=== PATIENT | female | born 1995 | race Two or more races ===

== ENCOUNTER 2024-05-16 17:37 | Emergency (ER) | payer MEDICAID, SELFPAY ==
--- NOTE | 2024-05-16 17:40 | EKG_ITS ---
[facility] Test Date: 2024-05-16 Pat Name: ANIYA SAINZ Department: Room: - Gender: Female Restaurant Lead: : 1995 Requested By: ED Temporary Provider Order Number: [id number] Reading MD: ED Temporary Provider Measurements Intervals [place] Rate: 71 P: 58 VA: 190 QRS: 73 QRSD: 90 T: 38 QT: 336 QTc: 365 Interpretive Statements SINUS RHYTHM WITH MARKED RHYTHM IRREGULARITY, POSSIBLE NON-CONDUCTED PAC, SA BLOCK, AV BLOCK, OR SINUS PAUSE ABNORMAL RHYTHM ECG Compared to ECG 09/02/2022 19:08:36 Sinus arrhythmia no longer present /[id number]/S0/[id number]
[2024-05-16 18:01] VITALS: BP 125/81; PULSE 78; RESP 18; TEMP 36.9; O2SAT 98; BMI 28.8
--- NOTE | 2024-05-16 18:01 | XR_ITS ---
Examination: PA lateral chest 2 views Technique: Upright PA lateral chest 2 views Exam date and time: May 16, 2024 1837 hrs. Indications: Onset left-sided chest pain today. Findings: No significant cardiac enlargement No pneumonia or pulmonary edema Intact osseous structures Impression: No active disease
--- NOTE | 2024-05-16 18:01 | PD.EDRME ---
Rapid Medical Screening Exam RME Arrival date/time: 05/16/24 17:37 28-year-old female presents the emergency department complains of chest pain Chief Complaint: Chest Pain
[2024-05-16 18:28] LABS: Basophils # (Auto) 0.1 Thou/mm3 (0.0-0.2); Basophils % (Auto) 1 % (0-2.5); Eosinophils # (Auto) 0.2 Thou/mm3 (0.0-0.5); Eosinophils % (Auto) 2 % (0-10); Hematocrit 34.6 % (36.0-46.0); Hemoglobin 11.5 g/dL (12.0-16.0); Immature Granulocytes % (Auto) 0 % (0-0); Immature Granulocytes Auto 0.01 Thou/mm3 (0.00-0.00); Lymphocytes # (Auto) 2.5 Thou/mm3 (1.0-4.8); Lymphocytes % (Auto) 29 % (10-50); Mean Corpuscular HGB Conc 33.2 g/dl (31.0-37.0); Mean Corpuscular Hemoglobin 26.3 pg (25.0-35.0); Mean Corpuscular Volume 79 fL (80-100); Monocytes # (Auto) 0.5 Thou/mm3 (0.0-0.8); Monocytes % (Auto) 6 % (0-12); Neutrophils # (Auto) 5.4 Thou/mm3 (1.8-7.7); Neutrophils % (Auto) 62 % (37-80); Nucleated Red Blood Cell % 0 /100 WBC (0); Platelet Count 260 Thou/mm3 (140-440); RDW Standard Deviation 50.8 fL (36.4-46.3); Red Blood Count 4.38 Miln/mm3 (4.00-5.20); White Blood Count 8.7 Thou/mm3 (3.6-11.0)
[2024-05-16 19:01] LABS: Alanine Aminotransferase 13 U/L (10-49); Albumin, Serum 4.5 gm/dL (3.5-5.0); Albumin/Globulin Ratio 1.5 (1.2-2.2); Alkaline Phosphatase 97 U/L (46-116); Anion Gap 7 (7-16); Aspartate Amino Transferase 17 U/L (0-34); BUN/Creatinine Ratio 20 Ratio (12-20); Bilirubin,Total 0.2 mg/dL (0.3-1.2); Blood Urea Nitrogen 14 mg/dL (9-23); Calcium 9.5 mg/dL (8.3-10.6); Calcium (Corrected) 9.5 mg/dL (8.5-10.1); Carbon Dioxide 23.7 mMol/L (20.0-31.0); Chloride 106 mMol/L (98-107); Creatinine (Component) 0.7 mg/dL (0.6-1.3); Estimated Creatinine Clearance 113.2 mL/min (>60); Glucose 117 mg/dL (74-106); Osmolality,Calculated 275 (275-295); Potassium 3.6 mMol/L (3.4-5.1); Sodium 137 mMol/L (136-145); Total Protein 7.5 gm/dL (5.7-8.2); Troponin I < 0.002 ng/mL (0.0-0.045); eGFR > 60 See Note
[2024-05-16 19:31] LABS: HCG,Qualitative Serum Negative
--- NOTE | 2024-05-16 21:00 | EDNOTE_ITS ---
ED Chest Pain RME/HPI General Chief Complaint: Chest Pain Stated Complaint: LEFT SIDED CHEST PAIN Time Seen by Provider: 05/16/24 19:33 Source: patient Arrival date/time: 05/16/24 17:37 This is a 28-year-old female with no significant past medical history that presents to the emergency department with complaints of left epigastric abdominal pain that radiates into her chest and left shoulder. Patient reports her pain started 2 days ago has not had any nausea no vomiting no diaphoresis. No reported fever. Patient did not attempt any interventions or take any OTC medications prior to ED visit. Patient denies any other associated symptoms or aggravating factors. No modifying factors, no radiation, no migration. Mode of arrival: ambulatory RME / HPI RME / HPI narrative: 05/16/24 17:37 28-year-old female presents the emergency department complains of chest pain Related Data Home Medications ?Medication ?Instructions ?Recorded ?Confirmed vit no.95-ferrous 1 tab PO QDAY 05/11/20 03/27/21 fumarate 28 mg-folic acid 800 mcg tablet () insulin glargine 100 unit/mL (3 20 unit subcut HS 03/19/21 03/27/21 mL) subcutaneous pen (Basaglar KwikPen U-100 Insulin) Previous Rx's ?Medication ?Instructions ?Recorded acetaminophen 500 mg capsule 1,000 mg (2 x 500 mg) PO QID PRN 07/16/21 fever or pain #30 caps albuterol sulfate 90 mcg/actuation 2 puff inhalation QID PRN 07/16/21 aerosol inhaler shortness of breath or wheezing #8.5 grams azithromycin 250 mg tablet See Rx Instructions PO .COMPLEX #6 07/16/21 tabs acetaminophen 650 mg 650 mg PO Q8H PRN fever or pain 09/29/21 tablet,extended release #30 tabs ibuprofen 600 mg tablet 600 mg PO Q8H PRN fever or pain 09/29/21 #30 tabs ibuprofen 600 mg tablet 600 mg PO TID PRN pain #30 tabs 09/04/22 famotidine 40 mg tablet 40 mg PO QDAY #20 tabs 08/31/23 Allergies Allergy/AdvReac Type Severity Reaction Status Date / Time No Known Allergies Allergy Verified 09/04/22 02:01 Review of Systems Review of Systems Systems Reviewed: All systems reviewed, normal except as documented Narrative Review of Systems: Gen: No fever, no chills, no weight loss EYES: No discharge, no visual changes, no pain HEENT: No ear pain, no congestion, no sore throat PULM: No shortness of breath, no cough, no congestion CV: +chest pain, no dyspnea on exertion, no palpitations GI: No nausea, no vomiting, no diarrhea, no pain, no constipation : No frequency, no urgency,? no dysuria Musc/skel: No joint pain, no back pain, +shoulder pain Skin: No rash? Psyc: No hallucinations, no depression Heme/Lymph: No easy bleeding or bruising tendencies Neuro: No weakness, no headache ED Exam Narrative Physical exam: General: Sittiing in Exam table in no acute distress, answering questions appropriately HENT: normocephalic, atraumatic, EOMI, PERRLA, moist mucous membranes Chest: chest wall is nontender Cardiac: regular rate and rhythm, normal S1 and S2, no murmurs, rubs, or gallops, capillary refill ?2 seconds Pulmonary: clear to auscultation bilaterally, no wheezing, crackles, or rhonchi Abdominal: active bowel sounds, soft, nontender, nondistended Neuro: A&OX3, CN II-XII intact, sensation grossly intact bilaterally in UE and LE. Skin: no rashes, no ecchymosis Ext: no lower extremity edema Course Quality Measures none Orders Category Date Time Status EKG (ED ONLY) *Do not use* NOW Care 05/16/24 17:40 Completed EKG (ED Only) Stat Exams 05/16/24 17:40 Draft XR chest 2V Stat Exams 05/16/24 18:01 Completed CBC Stat Lab 05/16/24 18:21 Completed Comprehensive Metabolic Panel Stat Lab 05/16/24 18:21 Completed HCG,Qualitative Serum Stat Lab 05/16/24 18:21 Completed Troponin I Stat Lab 05/16/24 18:21 Completed Ketorolac Inj [Toradol Inj] Med 05/16/24 21:19 Discontinued 30 mg IM X1 ONE Lidocaine 2% Viscous [Xylocaine 2% Viscous] Med 05/16/24 21:19 Discontinued 15 ml PO X1 ONE mg Hyd/Al Hyd/Merry Susp [Maalox Susp] Med 05/16/24 21:19 Discontinued 30 ml PO X1 ONE Vital Signs Vital signs: Vital Signs Temperature 98.5 F 05/16/24 18:01 Pulse Rate 78 05/16/24 18:01 Respiratory Rate 18 05/16/24 18:01 Blood Pressure 125/81 05/16/24 18:01 Pulse Oximetry (%) 98 05/16/24 18:01 Oxygen Delivery Method Room Air 05/16/24 18:01 Chest Pain Patient data External records reviewed:: [facility] previous records Clinical information provided by:: patient Social determinants that could affect healthcare access:: none Patient has the following chronic illnesses:: no How is presenting disease/condition affected by chronic disease/condition?: uneffected by Evaluation data The following diagnostics were reviewed and interpreted by me:: lab results, radiology exam(s) and EKG tracing(s) Lab and/or radiology exams considered but not ordered:: yes Interpretation Summary: Examination: PA lateral chest 2 views Technique: Upright PA lateral chest 2 views Exam date and time: May 16, 2024 1837 hrs. Indications: Onset left-sided chest pain today. Findings: No significant cardiac enlargement No pneumonia or pulmonary edema Intact osseous structures Impression: No active disease Medications / Prescriptions Medications or Prescriptions considered but not ordered:: no Medication administrations:: Medication Administration History Discontinued Medications Al Hydrox/Mg Hydrox/Simethicone (Mg Hyd/Al Hyd/Merry (Maalox Reg) Susp 30 Ml Udc) 30 ml PO X1 ONE Stop: 05/16/24 21:20 Last Admin: 05/16/24 21:24 Dose: 30 ml Documented By: CVL Ketorolac Tromethamine (Ketorolac Inj 60 Mg/2 Ml Vial) 30 mg IM X1 ONE Stop: 05/16/24 21:20 Last Admin: 05/16/24 21:26 Dose: 30 mg Documented By: CVL Lidocaine HCl (Lidocaine Viscous 2% 15 Ml Udc) 15 ml PO X1 ONE Stop: 05/16/24 21:20 Last Admin: 05/16/24 21:26 Dose: 15 ml Documented By: CVL All medications administered and effective Consultations Consultation(s) initiated? (list below): No Diagnosis Chest Pain Differential Diagnosis: fracture of rib, pneumothorax, stable angina, atypical chest pain, costochondritis and chest pain Most likely diagnosis given after review of the tests above:: Atypical chest pain, Admission Indicated Admission indicated?: not indicated Admission Request Was there a request for admission?: No Disposition Plan Disposition Plan: Discharge Discharge Attestation Discharge Attestation: The patient and all family members were given an opportunity to ask questions and understood the discharge instructions. Discharge instructions specifically effects, indications for sooner follow up or return to the emergency department, and the expected course of current diagnosis. Patient condition: Stable Discharge Plan Plan Patient Disposition: HOME (Self Care) Patient condition on transfer: Stable Prescriptions/Referrals Prescriptions/Med Rec: No Action PNV cmb#95-ferrous fumarate-FA [] 28 mg iron- 800 mcg Tablet 1 tab PO QDAY Basaglar KwikPen U-100 Insulin 100 unit/mL (3 mL) Insulin Pen 20 unit SUBCUT HS Rx Instructions: DR. WILLOUGHBY INCREASED TO 20 UNITS TODAY 03/19/21 azithromycin 250 mg tablet See Rx Instructions .ROUTE .COMPLEX Qty: 6 0RF Rx Instructions: For 250 mg dose pack: take 500 mg today (day 1), then 250 mg for 4 days (days 2-5) albuterol sulfate 90 mcg/actuation HFA aerosol inhaler 2 puff inhalation QID PRN (Reason: shortness of breath or wheezing) Qty: 8.5 0RF acetaminophen 500 mg capsule 1,000 mg PO QID PRN (Reason: fever or pain) Qty: 30 0RF acetaminophen 650 mg tablet extended release 650 mg PO Q8H PRN (Reason: fever or pain) Qty: 30 0RF Rx Instructions: swallow whole; do not chew/break/dissolve/open ibuprofen 600 mg tablet 600 mg PO Q8H PRN (Reason: fever or pain) Qty: 30 0RF ibuprofen 600 mg tablet 600 mg PO TID PRN (Reason: pain) Qty: 30 0RF famotidine 40 mg tablet 40 mg PO QDAY Qty: 20 0RF Referrals: Francisca Wilkins MD [Primary Care Provider] - In 1 week Problem List Clinical Impression: Atypical chest pain Patient/Caregiver Discharge Instructions Discharge Activity: activity as tolerated Education Materials: ED Chest Pain, Uncertain Cause Additional Instructions: Please follow-up with your primary doctor 2 days. If you are experiencing epigastric abdominal pain that radiates into her chest you might need to have an H. pylori test by your primary doctor If you continue to experience chest pain you might need a cardiac referral outpatient. If any of your symptoms worsen please return to the emergency department as soon as possible. Print Language: Vincentian Stand Alone Forms: Cassie Award Info., Patient Portal Info Letter PA/SUPERVISOR COMPRESSED YEAST Supervising Physician PA/SUPERVISOR [employer]PRESS[employer] Supervising Physician: Dr. Diaz
[2024-05-16] MEDS: MG HYD/AL HYD/SIME (Maalox Reg) SUSP 30 ML UDC PO (21:24)
[2024-05-16] MEDS: LIDOCAINE VISCOUS 2% 15 ML UDC PO (21:26)
[2024-05-16] MEDS: KETOROLAC INJ 60 MG/2 ML VIAL 30 MG IM (21:26)
[2024-05-16 21:46] VITALS: RESP 18
== END 2024-05-16 21:47 | disposition home or self-care (01) ==
PROVIDERS: Nurse Practitioner Primary Care; Emergency Provider Emergency Medicine; PCP Obstetrics & Gynecology
DX: R07.89 Other chest pain (principal); R94.31 Abnormal electrocardiogram [ECG] [EKG]
CPT/HCPCS: 36415; 71046; 80053; 84484; 84703; 85025; 93005; 96372; 99283; J1885; J3490; A9270

== ENCOUNTER 2024-06-17 00:16 | Emergency (ER) | payer MEDICAID, SELFPAY ==
[2024-06-17 00:16] VITALS: BMI 29.2
[2024-06-17 00:32] VITALS: BP 146/75; PULSE 87; RESP 18; TEMP 38.3; O2SAT 98
[2024-06-17 00:51] VITALS: TEMP 38.3
[2024-06-17] MEDS: ACETAMINOPHEN 500 MG TABLET 1000 MG PO (00:51)
[2024-06-17] MEDS: NAPROXEN 250 MG TABLET 500 MG PO (00:52)
--- NOTE | 2024-06-17 01:11 | EDNOTE_ITS ---
Upper Respiratory Inf. RME/HPI General Chief Complaint: Flu Like Symptoms Stated Complaint: HEADACHE, SORE THROAT Time Seen by Provider: 06/17/24 00:30 Arrival date/time: 06/17/24 00:16 28F with history of pre-DM presents to ED with 2 days of cough, OLIVAREZ and sore throat. Separately, patient also has 1 day of dysuria. Limitations: no limitations Related Data Home Medications ?Medication ?Instructions ?Recorded ?Confirmed vit no.95-ferrous 1 tab PO QDAY 05/11/20 03/27/21 fumarate 28 mg-folic acid 800 mcg tablet () insulin glargine 100 unit/mL (3 20 unit subcut HS 03/19/21 03/27/21 mL) subcutaneous pen (Basaglar KwikPen U-100 Insulin) Previous Rx's ?Medication ?Instructions ?Recorded acetaminophen 500 mg capsule 1,000 mg (2 x 500 mg) PO QID PRN 07/16/21 fever or pain #30 caps albuterol sulfate 90 mcg/actuation 2 puff inhalation QID PRN 07/16/21 aerosol inhaler shortness of breath or wheezing #8.5 grams azithromycin 250 mg tablet See Rx Instructions PO .COMPLEX #6 07/16/21 tabs acetaminophen 650 mg 650 mg PO Q8H PRN fever or pain 09/29/21 tablet,extended release #30 tabs ibuprofen 600 mg tablet 600 mg PO Q8H PRN fever or pain 09/29/21 #30 tabs ibuprofen 600 mg tablet 600 mg PO TID PRN pain #30 tabs 09/04/22 famotidine 40 mg tablet 40 mg PO QDAY #20 tabs 08/31/23 cephalexin 500 mg tablet 500 mg PO TID 7 days #21 tabs 06/17/24 Allergies Allergy/AdvReac Type Severity Reaction Status Date / Time No Known Allergies Allergy Verified 06/17/24 00:19 Review of Systems Review of Systems Systems Reviewed: All systems reviewed, normal except as documented Constitutional Constitutional: Reports system reviewed and no additional complaints, except as documented, Reports as per HPI, Denies fever(s) and Reports headache(s) ENT Ears, Nose, Mouth, and Throat: Reports as per HPI, Denies disequilibrium, Reports headache(s) and Reports sore throat Cardiovascular Cardiovascular: Reports system reviewed and no additional complaints, except as documented, Denies chest pain and Denies dyspnea Respiratory Respiratory: Reports system reviewed and no additional complaints, except as documented, Reports as per HPI, Reports cough and Denies dyspnea Gastrointestinal Gastrointestinal: Reports system reviewed and no additional complaints, except as documented, Denies abdominal pain, Denies nausea and Denies vomiting Genitourinary Genitourinary: Reports as per HPI and Reports dysuria Neurologic Neurologic: Reports system reviewed and no additional complaints, except as documented, Denies confusion, Denies disequilibrium and Reports headache(s) Psychiatric Psychiatric: Denies confusion Past Medical History Past Medical History NEUROLOGIC: Negative Neurological Disorders or Seizures CARDIAC: Negative Cardiac Disorders or Congestive Heart Failure RESPIRATORY: Negative Chronic Obstructive Pulmonary Disease (COPD) GASTROINTESTINAL: Negative Gastrointestinal Disorders GENITOURINARY: Positive Genitourinary Disorders (YEAST); Negative Renal Disease REPRODUCTIVE: Positive Previous Pregnancies MUSCULOSKELETAL: Positive Arthritis; Negative Musculoskeletal Disorders ENDOCRINE: Positive Endocrine Disorders; Negative Diabetes Mellitus Type 1 or Diabetes Mellitus Type 2 HEMATOLOGIC: Negative Blood Disorders or Anemia OTHER HISTORY: Positive Hospitalization (CHILDBIRTH); Negative Autoimmune Disease, Falls, Blood Transfusions, Blood Transfusion Reaction, Anesthesia Reactions or Cancer Family History FAMILY HISTORY: Negative Family Psychiatric Problems, Family Respiratory Disorders, Family Cardiac Disorders, Family Gastrointestinal Problems, Family Cancer, Family Surgery or Family Anesthesia Reaction Surgical History SURGICAL: Negative Joint Replacement or Section Social History SMOKING STATUS: Never smoker ED Exam General Limitations: Present no limitations General appearance: Present alert and in no apparent distress Head Head exam: Present atraumatic Eye Eye exam: Present normal appearance, PERRL and EOMI ENT ENT exam: Present normal exam, normal oropharynx and mucous membranes moist Neck Neck exam: Present normal inspection, full ROM and trachea midline Chest Chest inspection: Present normal inspection and symmetric chest wall rise Respiratory Respiratory exam: Present normal lung sounds bilaterally Cardiovascular Cardiovascular exam: Present regular rate, normal rhythm and normal heart sounds Abdominal Exam Abdominal exam: Present soft and normal bowel sounds Extremities Exam Extremities exam: Present normal inspection and full ROM Back Exam Back exam: Present normal inspection and full ROM Neurological Exam Neurological exam: Present alert, oriented X3 and CN II-XII intact Psychiatric Psychiatric exam: Present normal affect and normal mood Skin Skin exam: Present warm, dry, intact and normal color Course Quality Measures none Orders Category Date Time Status Bedside Influenza A&B Antigen Test NOW Care 06/17/24 00:30 Completed HCG Qualitative,Urine Stat Lab 06/17/24 00:47 Completed Strep A Rapid Stat Lab 06/17/24 00:35 Completed Urinalysis, C/S if Indicated Stat Lab 06/17/24 00:47 Completed Urine Culture Stat Lab 06/17/24 00:47 Received Acetaminophen Tab [Tylenol ES Tab] Med 06/17/24 00:33 Discontinued 1,000 mg PO X1 ONE Naproxen [Naprosyn] Med 06/17/24 00:33 Discontinued 500 mg PO X1 ONE Vital Signs Vital signs: Vital Signs Temperature 101 F H 06/17/24 00:32 Pulse Rate 87 06/17/24 00:32 Respiratory Rate 18 06/17/24 00:32 Blood Pressure 146/75 H 06/17/24 00:32 Pulse Oximetry (%) 98 06/17/24 00:32 Oxygen Delivery Method Room Air 06/17/24 00:32 O2 at 98% on RA and WNLs Upper Respiratory Infection MDM Narrative MDM Narrative:: 28F with history of pre-DM presents to ED with 2 days of cough, OLIVAREZ and sore throat. Separately, patient also has 1 day of dysuria. Physical exam reveals nasal congestion otherwise clear ENT and lungs. Patient is febrile, but does not appear toxic. Flu B+. UA contaminated, but given symptoms and DM status, will treat. Patient data External records reviewed:: [facility] previous records Clinical information provided by:: patient Social determinants that could affect healthcare access:: none Patient has the following chronic illnesses:: none How is presenting disease/condition affected by chronic disease/condition?: no chronic disease Evaluation data The following diagnostics were reviewed and interpreted by me:: lab results Lab and/or radiology exams considered but not ordered:: ordered Interpretation Summary: above Medications / Prescriptions Medications or Prescriptions considered but not ordered:: ordered Medication administrations:: Medication Administration History Discontinued Medications Acetaminophen (Acetaminophen 500 Mg Tablet) 1,000 mg PO X1 ONE Stop: 06/17/24 00:34 Last Admin: 06/17/24 00:51 Dose: 1,000 mg Documented By: NADEGE Naproxen (Naproxen 250 Mg Tablet) 500 mg PO X1 ONE Stop: 06/17/24 00:34 Last Admin: 06/17/24 00:52 Dose: 500 mg Documented By: NADEGE above Consultations Consultation(s) initiated? (list below): No Diagnosis Upper Respiratory Differential Diagnosis: upper respiratory infection, croup, otitis media, sinusitis, viral infection, bronchitis, influenza, pharyngitis and other (dysuria, UTI) Most likely diagnosis given after review of the tests above:: flu B and dysuria Admission Indicated Admission indicated?: not indicated Admission Request Was there a request for admission?: No Disposition Plan Disposition Plan: Discharge Discharge Attestation Discharge Attestation: The patient and all family members were given an opportunity to ask questions and understood the discharge instructions. Discharge instructions specifically effects, indications for sooner follow up or return to the emergency department, and the expected course of current diagnosis. Patient condition: Stable Discharge Plan Plan Patient Disposition: HOME (Self Care) Disposition Comment: Stable Prescriptions/Referrals Prescriptions/Med Rec: New cephalexin 500 mg tablet 500 mg PO TID 7 Days Qty: 21 0RF No Action PNV cmb#95-ferrous fumarate-FA [] 28 mg iron- 800 mcg Tablet 1 tab PO QDAY Basaglar KwikPen U-100 Insulin 100 unit/mL (3 mL) Insulin Pen 20 unit SUBCUT HS Rx Instructions: DR. WILLOUGHBY INCREASED TO 20 UNITS TODAY 03/19/21 azithromycin 250 mg tablet See Rx Instructions .ROUTE .COMPLEX Qty: 6 0RF Rx Instructions: For 250 mg dose pack: take 500 mg today (day 1), then 250 mg for 4 days (days 2-5) albuterol sulfate 90 mcg/actuation HFA aerosol inhaler 2 puff inhalation QID PRN (Reason: shortness of breath or wheezing) Qty: 8.5 0RF acetaminophen 500 mg capsule 1,000 mg PO QID PRN (Reason: fever or pain) Qty: 30 0RF acetaminophen 650 mg tablet extended release 650 mg PO Q8H PRN (Reason: fever or pain) Qty: 30 0RF Rx Instructions: swallow whole; do not chew/break/dissolve/open ibuprofen 600 mg tablet 600 mg PO Q8H PRN (Reason: fever or pain) Qty: 30 0RF ibuprofen 600 mg tablet 600 mg PO TID PRN (Reason: pain) Qty: 30 0RF famotidine 40 mg tablet 40 mg PO QDAY Qty: 20 0RF Referrals: Francisca Wilkins FNP-C [Primary Care Provider] - In 1 week Problem List Clinical Impression: Influenza B, Dysuria Patient/Caregiver Discharge Instructions Education Materials: ED Influenza (Adult) Additional Instructions: Please follow-up with PCP within 24-48 hours and return immediately if symptoms worsen. Ibuprofen/Tylenol can be used simultaneously for greater fever/pain control. Benadryl is good for cough, congestion, and sleep. Print Language: Telugu Stand Alone Forms: Patient Portal Info Letter PA/ELECTRICIAN OUTSIDE Supervising Physician PA/ELECTRICIAN OUTSIDE Supervising Physician: Dr. Garza
[2024-06-17 01:14] LABS: Collection Type, Urine Clean Catch
[2024-06-17 01:26] LABS: Bilirubin,Urine Negative (Negative); Blood,Urine Negative (Negative); Clarity,Urine Clear (Clear/Hazy); Color,Urine Lt-Yellow (Lt Yel-Yel); Glucose, Urine Negative (Negative); Ketones,Urine Negative (Negative); Leukocyte Esterase,Urine Positive (Negative); Nitrite,Urine Negative (Negative); PH,Urine 6.5 (5.0-7.0); Protein,Urine Negative (Neg - Trace); RBC,Urine 2 /hpf (0-3); Specific Gravity,Urine 1.014 (1.001-1.035); Squamous Epithelial Cell,Urine 6 /hpf (0-5); Urobilinogen,Urine Negative mg/dL (0.0-1.0); WBC,Urine 13 /hpf (0-5)
[2024-06-17 01:27] LABS: Culture Indicated,Urine Yes
[2024-06-17 01:28] LABS: HCG Qualitative,Urine Negative
[2024-06-17 01:44] LABS: Strep A Rapid Negative (Negative)
[2024-06-17 01:50] VITALS: TEMP 36.9
[2024-06-17 01:51] VITALS: TEMP 36.9
== END 2024-06-17 01:51 | disposition home or self-care (01) ==
PROVIDERS: Physician Assistant; Emergency Provider Emergency Medicine; PCP Nurse Practitioner Family
DX: J10.1 Influenza due to other identified influenza virus with other respiratory manifestations (principal); R30.0 Dysuria
CPT/HCPCS: 81001; 81025; 87086; 87400; 87651; 99283; A9270

== ENCOUNTER 2024-10-05 08:29 | Emergency (ER) | payer MEDICAID, SELFPAY ==
[2024-10-05 08:45] VITALS: BP 128/77; PULSE 62; RESP 19; TEMP 36.9; O2SAT 99; BMI 61.7
--- NOTE | 2024-10-05 08:53 | EDNOTE_ITS ---
ED Back Injury Pain RME/HPI General Chief Complaint: Back Pain/Injury Stated Complaint: Pain in low back radiating to left leg Time Seen by Provider: 10/05/24 08:40 Arrival date/time: 10/05/24 08:29 29-year-old female with no significant medical problems presents to the Emergency Department today with complaints of left-sided back pain radiating down her left leg patient reports no saddle anesthesia no loss of bowel or bladder patient reports no chance of patient reports no fever nausea vomiting no dysuria Limitations: no limitations Related Data Home Medications ?Medication ?Instructions ?Recorded ?Confirmed vit no.95-ferrous 1 tab PO QDAY 05/11/2007/17 fumarate 28 mg-folic acid 800 mcg tablet () insulin glargine 100 unit/mL (3 20 unit subcut HS 02/2603/27/21 mL) subcutaneous pen (Basaglar KwikPen U-100 Insulin) Previous Rx's ?Medication ?Instructions ?Recorded acetaminophen 500 mg capsule 1,000 mg (2 x 500 mg) PO QID PRN 07/16/21 fever or pain #30 caps albuterol sulfate 90 mcg/actuation 2 puff inhalation Q ID PRN 07/16/21 aerosol inhaler shortness of breath or wheez ing #8.5 grams azithromycin 250 mg tablet See Rx Instructions PO .COM PLEX #6 07/16/21 tabs acetaminophen 650 mg 650 mg PO Q8H PRN fever or p ain 09/29/21 tablet,extended release #30 tabs ibuprofen 600 mg tablet 600 mg PO Q8H PRN fever or p ain 09/29/21 #30 tabs ibuprofen 600 mg tablet 600 mg PO TID PRN pain #30 t abs 09/04/22 famotidine 40 mg tablet 40 mg PO QDAY #20 tabs 08/30 cyclobenzaprine 10 mg tablet 10 mg PO TID PRN muscle s pasm 10 10/05/24 days #30 tab-caps ibuprofen 600 mg tablet 600 mg PO Q6H #30 tabs 10/05 Allergies Allergy/AdvReac Type Severity Reaction Status Date / Time No Known Allergies Allergy Verified 10/05/24 08:34 Review of Systems Review of Systems Systems Reviewed: All systems reviewed, normal except as documented Constitutional Constitutional: Reports system reviewed and no additional complaints, except as documented, Denies fever(s) and Denies headache(s) Eyes Eyes: Reports system reviewed and no additional complaints, except as documented and Denies blurry vision ENT Ears, Nose, Mouth, and Throat: Reports system reviewed and no additional complaints, except as documented, Denies headache(s), Denies nasal congestion and Denies nasal discharge Cardiovascular Cardiovascular: Reports system reviewed and no additional complaints, except as documented, Denies chest pain and Denies dyspnea Respiratory Respiratory: Reports system reviewed and no additional complaints, except as do cumented, Denies chest congestion, Denies cough and Denies dyspnea Gastrointestinal Gastrointestinal: Reports system reviewed and no additional complaints, except as documented and Denies abdominal pain Musculoskeletal Musculoskeletal: Reports system reviewed and no additional complaints, except as documented, Reports back pain and Denies deformity Integumentary/Breasts Skin/Breast: Reports system reviewed and no additional complaints, except as doc umented and Denies rash Neurologic Neurologic: Reports system reviewed and no additional complaints, except as documented, Reports as per HPI and Denies headache(s) Past Medical History Past Medical History NEUROLOGIC: Negative Neurological Disorders or Seizures CARDIAC: Negative Cardiac Disorders or Congestive Heart Failure RESPIRATORY: Negative Chronic Obstructive Pulmonary Disease (COPD) GASTROINTESTINAL: Negative Gastrointestinal Disorders GENITOURINARY: Positive Genitourinary Disorders (YEAST); Negative Renal Disease REPRODUCTIVE: Positive Previous Pregnancies MUSCULOSKELETAL: Positive Arthritis; Negative Musculoskeletal Disorders ENDOCRINE: Positive Endocrine Disorders; Negative Diabetes Mellitus Type 1 or Diabetes Mellitus Type 2 HEMATOLOGIC: Negative Blood Disorders or Anemia OTHER HISTORY: Positive Hospitalization (CHILDBIRTH); Negative Autoimmune Disease, Falls, Blood Transfusions, Blood Transfusion Reaction, Anesthesia Reactions or Cancer Family History FAMILY HISTORY: Negative Family Psychiatric Problems, Family Respiratory Disorders, Family Cardiac Disorders, Family Gastrointestinal Problems, Family Cancer, Family Surgery or Family Anesthesia Reaction Surgical History SURGICAL: Negative Joint Replacement or Section Social History SMOKING STATUS: Never smoker ED Exam General Limitations: Present no limitations General appearance: Present alert and in no apparent distress Head Head exam: Present atraumatic, normocephalic and normal inspection Eye Eye exam: Present normal appearance, PERRL and EOMI; Absent conjunctival injection ENT ENT exam: Present normal exam, normal oropharynx and mucous membranes moist Neck Neck exam: Present normal inspection, full ROM and trachea midline Chest Chest inspection: Present normal inspection and symmetric chest wall rise Respiratory Respiratory exam: Present normal lung sounds bilaterally; Absent respiratory distress Cardiovascular Cardiovascular exam: Present regular rate, normal rhythm and normal heart sounds Abdominal Exam Abdominal exam: Present soft and normal bowel sounds; Absent distention, tenderness, guarding, rebound or rigidity Extremities Exam Extremities exam: Present normal inspection and full ROM Back Exam Back exam: Present normal inspection, full ROM, tenderness, muscle spasm, paraspinal tenderness, sciatic notch tenderness (L) and straight leg raise (L); Absent CVA tenderness (R) or CVA tenderness (L) Neurological Exam Neurological exam: Present alert, oriented X3 and CN II-XII intact Psychiatric Psychiatric exam: Present normal affect and normal mood Skin Skin exam: Present warm, dry, intact and normal color Course Quality Measures none Orders Category Date Time Status Dexamethasone Inj [Decadron Inj] Med 10/05/24 08:48 Discontinued 10 mg PO X1 ONE Ketorolac Inj [Toradol Inj] Med 10/05/24 08:46 Discontinued 30 mg IM X1 ONE Vital Signs Vital signs: Vital Signs Temperature 98.4 F 10/05/24 08:45 Pulse Rate 62 10/05/24 08:45 Respiratory Rate 19 10/05/24 08:45 Blood Pressure 128/77 10/05/24 08:45 Pulse Oximetry (%) 99 10/05/24 08:45 Oxygen Delivery Method Room Air 10/05/24 08:45 O2 saturation 99% on room air within normal with Back Pain / Injury MDM Narrative MDM Narrative:: 29-year-old female with no significant medical problems presents to the Emergency Department today with complaints of left-sided back pain radiating down her left leg patient reports no saddle anesthesia no loss of bowel or bladder patient reports no chance of patient reports no fever nausea vomiting no dysuria Based on symptomatology symptoms are consistent with sciatica Patient be treated accordingly Explained to the patient for symptoms persist or worsen she may need imaging for further evaluation Patient data External records reviewed:: [facility] previous records Clinical information provided by:: patient Social determinants that could affect healthcare access:: none Patient has the following chronic illnesses:: None How is presenting disease/condition affected by chronic disease/condition?: no chronic disease Evaluation data The following diagnostics were reviewed and interpreted by me:: other (specify) Lab and/or radiology exams considered but not ordered:: Consider not ordered Interpretation Summary: N/A Medications / Prescriptions Medications or Prescriptions considered but not ordered:: Given Medication administrations:: Medication Administration History Discontinued Medications Dexamethasone Sodium Phosphate (Dexamethasone Sod Phos Inj 10 Mg/Ml Vial) 10 mg PO X1 ONE Stop: 10/05/24 08:49 Ketorolac Tromethamine (Ketorolac Inj 30 Mg/Ml Vial) 30 mg IM X1 ONE Stop: 10/05/24 08:47 Given Consultations Consultation(s) initiated? (list below): No Diagnosis Differential diagnosis back pain/injury: lumbar radiculopathy, sciatica and strain of lumbar region Most likely diagnosis given after review of the tests above:: Sciatica Admission Indicated Admission indicated?: not indicated Admission Request Was there a request for admission?: No Disposition Plan Disposition Plan: Discharge Discharge Attestation Discharge Attestation: The patient and all family members were given an opportunity to ask questions and understood the discharge instructions. Discharge instructions specifically effects, indications for sooner follow up or return to the emergency department, and the expected course of current diagnosis. Patient condition: Stable Discharge Plan Plan Patient Disposition: HOME (Self Care) Disposition Comment: Stable Prescriptions/Referrals Prescriptions/Med Rec: New cyclobenzaprine 10 mg tablet 10 mg PO TID PRN (Reason: muscle spasm) 10 Days Qty: 30 0RF ibuprofen 600 mg tablet 600 mg PO Q6H Qty: 30 0RF No Action PNV cmb#95-ferrous fumarate-FA [] 28 mg iron- 800 mcg Tablet 1 tab PO QDAY [place] Rm U-100 Insulin 100 unit/mL (3 mL) Insulin Pen 20 unit SUBCUT HS Rx Instructions: DR. WILLOUGHBY INCREASED TO 20 UNITS TODAY 03/19/21 azithromycin 250 mg tablet See Rx Instructions .ROUTE .COMPLEX Qty: 6 0RF Rx Instructions: For 250 mg dose pack: take 500 mg today (day 1), then 250 mg for 4 days (days 2-5) albuterol sulfate 90 mcg/actuation HFA aerosol inhaler 2 puff inhalation QID PRN (Reason: shortness of breath or wheezing) Qty: 8.5 0RF acetaminophen 500 mg capsule 1,000 mg PO QID PRN (Reason: fever or pain) Qty: 30 0RF acetaminophen 650 mg tablet extended release 650 mg PO Q8H PRN (Reason: fever or pain) Qty: 30 0RF Rx Instructions: swallow whole; do not chew/break/dissolve/open ibuprofen 600 mg tablet 600 mg PO Q8H PRN (Reason: fever or pain) Qty: 30 0RF ibuprofen 600 mg tablet 600 mg PO TID PRN (Reason: pain) Qty: 30 0RF famotidine 40 mg tablet 40 mg PO QDAY Qty: 20 0RF Problem List Clinical Impression: Left sided sciatica Patient/Caregiver Discharge Instructions Education Materials: Self Care Back Day Additional Instructions: Please follow up with your primary care doctor in the next 24-48hrs for any wor sening symptoms return here immediately Print Language: Angolan Stand Alone Forms: Cassie Award Info., Patient Portal Info Letter PA/ACCOUNTING PRACTICE MANAGER Supervising Physician PA/ACCOUNTING PRACTICE MANAGER Supervising Physician: Dr evans
[2024-10-05] MEDS: DEXAMETHASONE SOD PHOS INJ 10 MG/ML VIAL PO (09:00)
[2024-10-05] MEDS: KETOROLAC INJ 30 MG/ML VIAL IM (09:00)
== END 2024-10-05 09:14 | disposition home or self-care (01) ==
PROVIDERS: Emergency Provider Emergency Medicine; PCP Obstetrics & Gynecology
DX: M54.42 Lumbago with sciatica, left side (principal)
CPT/HCPCS: 96372; 99283; J1100; J1885

== ENCOUNTER 2025-01-06 19:09 | Emergency (ER) | payer MEDICAID, SELFPAY ==
[2025-01-06 19:10] VITALS: BMI 29.2
[2025-01-06 19:18] VITALS: BP 132/80; PULSE 84; RESP 16; TEMP 36.9; O2SAT 99
--- NOTE | 2025-01-06 19:24 | XR_ITS ---
Examination: CT brain head without contrast. 2-D sagittal coronal reconstructions Date and time of exam:January 06, 2025, 1943 hours INDICATIONS: Onset headaches today CTDI: vol (mGy):51 DLP: (mGycm):1049 Technique: Multiple CT axial sections of the brain have been obtained, 5 mm slice thickness. Contrast has not been administered. 2-D sagittal, coronal reconstructions have been obtained Low dose protocols were performed. One or more of the following dose reduction techniques were used; automated exposure control, adjustment of the mA and/or KV according to patient size, use of iterative reconstruction technique. Findings: No significant ventricular enlargement. Intra-axial or extra-axial hemorrhage density is not seen. No mass effect or midline shift Basal cisterns are not remarkable. Fourth ventricle is midline. Cranial vault intact. Impression: Negative for acute hemorrhage, mass effect or midline shift
[2025-01-06 19:57] LABS: HCG Qualitative,Urine Negative
[2025-01-06] MEDS: KETOROLAC INJ 60 MG/2 ML VIAL 30 MG IM (21:43)
[2025-01-06 22:02] VITALS: RESP 18
--- NOTE | 2025-01-07 01:02 | EDNOTE_ITS ---
ED Headache RME/HPI General Chief Complaint: Flu Like Symptoms Stated Complaint: BODYACHES, OLIVAREZ, FLU SYMPTOMS Time Seen by Provider: 01/06/25 19:10 Source: patient Arrival date/time: 01/06/25 19:09 This is a case of 29-year-old female who who came in in the emergency room due to headache on and off for 3 days associated with generalized body ache nasal congestion postnasal drip and sinus pain for the persistence of the symptoms this patient decided to sought consult here in the emergency room denies any numbness weakness tingling sensation denies any blurring of vision Limitations: no limitations Related Data Home Medications ?Medication ?Instructions ?Recorded ?Confirmed vit no.95-ferrous 1 tab PO QDAY 05/11/2007/17 fumarate 28 mg-folic acid 800 mcg tablet () insulin glargine 100 unit/mL (3 20 unit subcut HS 02/2603/27/21 mL) subcutaneous pen (Basaglar KwikPen U-100 Insulin) Previous Rx's ?Medication ?Instructions ?Recorded azithromycin 250 mg tablet See Rx Instructions PO .COM PLEX #6 07/16/21 tabs famotidine 40 mg tablet 40 mg PO QDAY #20 tabs 08/30 ibuprofen 600 mg tablet 600 mg PO Q6H #30 tabs 10/05 ibuprofen 800 mg tablet 800 mg PO TID PRN pain #30 t abs 10/05/24 azithromycin 250 mg tablet See Rx Instructions PO .COM PLEX #6 01/06/25 (Zithromax Z-Dwayne) tabs fluticasone propionate 50 1 spray intranasal BID #16 g liset 01/06/25 mcg/actuation nasal spray,suspension (Flonase Allergy Relief) ibuprofen 800 mg tablet 800 mg PO Q8H PRN pain #20 t abs 01/06/25 ondansetron 4 mg disintegrating 4 mg PO Q8H PRN nausea and 01/06/25 tablet vomiting #10 tabs Allergies Allergy/AdvReac Type Severity Reaction Status Date / Time No Known Allergies Allergy Verified 01/06/25 19:10 Review of Systems Review of Systems Systems Reviewed: All systems reviewed, normal except as documented Constitutional Constitutional: Reports system reviewed and no additional complaints, except as documented, Reports as per HPI, Reports body ache(s), Denies chills, Denies fever(s), Denies frequent falls, Reports headache(s) and Denies weakness Eyes Eyes: Denies loss of vision ENT Ears, Nose, Mouth, and Throat: Reports system reviewed and no additional complaints, except as documented, Reports as per HPI, Denies abnormal hearing, Denies bleeding gums, Denies change in voice, Denies dental pain, Denies disequilibrium, Denies dizziness, Denies dry mouth, Denies dysphagia, Denies ear discharge, Denies otalgia, Denies epistaxis, Reports facial pain, Denies halitosis, Reports headache(s), Denies hearing loss, Denies hoarseness, Denies lip swelling, Denies mouth lesions, Denies mouth pain, Reports nasal congestion, Reports nasal discharge, Denies nasal obstruction, Denies nasal trauma, Denies neck mass, Denies neck pain, Denies nose pain, Denies odynophagia, Reports post nasal drip, Reports sinus pain, Reports sinus pressure, Denies sore throat, Denies tinnitus, Denies tongue swelling and Denies vertigo Cardiovascular Cardiovascular: Reports system reviewed and no additional complaints, except as documented, Reports as per HPI, Denies chest pain, Denies dyspnea and Denies syncope Respiratory Respiratory: Reports system reviewed and no additional complaints, except as documented, Reports as per HPI, Denies change in phlegm color, Denies chest congestion, Denies cough and Denies dyspnea Gastrointestinal Gastrointestinal: Reports system reviewed and no additional complaints, except as documented, Reports as per HPI, Denies dysphagia and Denies odynophagia Musculoskeletal Musculoskeletal: Denies abnormal gait, Denies neck pain, Denies numbness and Denies tingling Neurologic Neurologic: Reports system reviewed and no additional complaints, except as documented, Reports as per HPI, Denies abnormal gait, Denies abnormal hearing, Denies abnormal movements, Denies abnormal speech, Denies behavioral changes, Denies burning sensations, Denies confusion, Denies convulsions, Denies disequilibrium, Denies dizziness, Denies localized weakness, Denies frequent falls, Reports headache(s), Denies lack of coordination, Denies loss of vision, Denies memory loss, Denies numbness, Denies other visual disturbances, Denies paresthesias, Denies radicular pain, Denies restless legs, Denies seizure-like activity, Denies sensory deficit, Denies syncope, Denies tingling, Denies tremor(s), Denies vertigo and Denies weakness Psychiatric Psychiatric: Denies behavioral changes, Denies confusion and Denies memory loss Allergic/Immunologic Allergic/Immunologic: Denies lip swelling and Denies tongue swelling Past Medical History Past Medical History NEUROLOGIC: Negative Neurological Disorders or Seizures CARDIAC: Negative Cardiac Disorders or Congestive Heart Failure RESPIRATORY: Negative Chronic Obstructive Pulmonary Disease (COPD) GASTROINTESTINAL: Negative Gastrointestinal Disorders GENITOURINARY: Positive Genitourinary Disorders (YEAST); Negative Renal Disease REPRODUCTIVE: Positive Previous Pregnancies MUSCULOSKELETAL: Positive Arthritis; Negative Musculoskeletal Disorders ENDOCRINE: Positive Endocrine Disorders; Negative Diabetes Mellitus Type 1 or Diabetes Mellitus Type 2 HEMATOLOGIC: Negative Blood Disorders or Anemia OTHER HISTORY: Positive Hospitalization (CHILDBIRTH); Negative Autoimmune Disease, Falls, Blood Transfusions, Blood Transfusion Reaction, Anesthesia Reactions or Cancer Family History FAMILY HISTORY: Negative Family Psychiatric Problems, Family Respiratory Disorders, Family Cardiac Disorders, Family Gastrointestinal Problems, Family Cancer, Family Surgery or Family Anesthesia Reaction Surgical History SURGICAL: Negative Joint Replacement or Section Social History SMOKING STATUS: Never smoker ED Exam General Limitations: Present no limitations General appearance: Present alert, in no apparent distress and other (Patient is awake alert oriented not in distress nontoxic looking well-hydrated well- nourished) Head Head exam: Present atraumatic, normocephalic and normal inspection Eye Eye exam: Present normal appearance, PERRL, EOMI and other (no papapiledema) ENT ENT exam: Present normal exam, normal oropharynx, mucous membranes moist and other (Ear and throat exam is normal patient noted to have frontal and maxillary sinus tenderness nostril and turbinates were swollen and red but no nasal polyps no septal deviation) Neck Neck exam: Present normal inspection, full ROM, trachea midline and other (Negative meningeal sign); Absent tenderness, meningismus, lymphadenopathy or thyromegaly Chest Chest inspection: Present normal inspection and symmetric chest wall rise; Absent tenderness or rash Respiratory Respiratory exam: Present normal lung sounds bilaterally; Absent respiratory distress, wheezes, stridor, accessory muscle use or prolonged expiratory phase Cardiovascular Cardiovascular exam: Present regular rate and normal rhythm; Absent bradycardia, tachycardia, normal heart sounds, systolic murmur or diastolic murmur Abdominal Exam Abdominal exam: Present soft and normal bowel sounds Extremities Exam Extremities exam: Present normal inspection and full ROM Back Exam Back exam: Present normal inspection and full ROM Neurological Exam Neurological exam: Present alert, oriented X3, CN II-XII intact, normal gait, reflexes normal and other (Awake alert oriented x 4 no focal deficit GCS 15/15 steady gait memory intact CN II to XII is normal no slurring of speech no facial droop negative Babinski motor 5/5 sensory +2 reflexes +2 negative Babinski); Absent motor sensory deficit Psychiatric Psychiatric exam: Present normal affect and normal mood Skin Skin exam: Present warm, dry, intact and normal color Course Quality Measures none Orders Category Date Time Status Bedside COVID-19 Antigen Test NOW Care 01/06/25 19:24 Completed Bedside Influenza A&B Antigen Test NOW Care 01/06/25 19:[address] head/brain wo con Stat Exams 01/06/25 19:24 Completed HCG Qualitative,Urine Stat Lab 01/06/25 19:42 Completed Ketorolac Inj [Toradol Inj] Med 01/06/25 21:11 Discontinued 30 mg IM X1 ONE Vital Signs Vital signs: Vital Signs Temperature 98.5 F 01/06/25 19:18 Pulse Rate 84 01/06/25 19:18 Respiratory Rate 16 01/06/25 19:18 Blood Pressure 132/80 H 01/06/25 19:18 Pulse Oximetry (%) 99 01/06/25 19:18 Oxygen Delivery Method Room Air 01/06/25 19:18 Patient is afebrile not tachycardic not tachypneic BP stable not hypoxic oxygen saturation is in room air normal Headache MDM Narrative MDM Narrative:: This is a case of 29-year-old female who who came in in the emergency room due to headache on and off for 3 days associated with generalized body ache nasal congestion postnasal drip and sinus pain for the persistence of the symptoms this patient decided to sought consult here in the emergency room denies any numbness weakness tingling sensation denies any blurring of vision physical examination patient is awake alert oriented not in distress nontoxic looking well-hydrated well-nourished excellent skin turgor negative meningeal sign HEENT exam showed normal ear normal throat exam noted nose exam frontal and maxillary sinus tenderness with nostril and turbinates swollen and red no nasal polyps no septal deviation noted patient lungs sound is clear no crackles no rales no retraction no stridor heart normal rate regular rhythm neurological exam is normal no focal deficit GCS 15/15 steady gait the rest of the physical and neurological exam is normal and unremarkable CT scan showed normal unremarkable at this point patient will be treated as headache due to sinus infection patient was given Toradol here in the emergency room which patient condition markedly improved patient was advised if there is recurrence of persistent headache he needs to see a neurologist for further evaluation and treatment of headache azithromycin and Flonase was prescribed for sinus infection ibuprofen and Zofran for headache patient condition markedly improved and will follow-up with PCP in 2 days for reevaluation for any worsening symptoms or any emergent concerns she will return in the emergency room immediately or call 911 Patient was discharged with comfortable condition walking with stable gait. Patient verbalized no further complains explained diagnosis and answered patient question. Patient is comfortable with the proposed management plan including the need to follow up with his/her primary care physician and any specialist if applicable Discussed patient for any urgent condition or worsening sx, He/She needed to go to emergency room immediately or call 911. Patient acknowledge the responsibility to follow up as instructed and to monitor her/his symptoms. For any persistence of the symptoms for more than 3-5 days return precaution advised. Discussed the result of the test and was given printed discharge instruction Patient data External records reviewed:: [facility] previous records Clinical information provided by:: patient Social determinants that could affect healthcare access:: none Patient has the following chronic illnesses:: None How is presenting disease/condition affected by chronic disease/condition?: no chronic disease Evaluation data The following diagnostics were reviewed and interpreted by me:: lab results and radiology exam(s) Lab and/or radiology exams considered but not ordered:: Reviewed Interpretation Summary: Reviewed Medications / Prescriptions Medications or Prescriptions considered but not ordered:: Given Medication administrations:: Medication Administration History Discontinued Medications Ketorolac Tromethamine (Ketorolac Inj 60 Mg/2 Ml Vial) 30 mg IM X1 ONE Stop: 01/06/25 21:12 Last Admin: 01/06/25 21:43 Dose: 30 mg Documented By: CVL Given Consultations Consultation(s) initiated? (list below): No Diagnosis Differential diagnosis headache: migraine, tension headache, headache, meningitis and sinusitis Most likely diagnosis given after review of the tests above:: Sinusitis headache Admission Indicated Admission indicated?: not indicated Explain why admission is indicated or not indicated:: Not indicated Admission Request Was there a request for admission?: No Admission Attestation Admission request attestation: Not indicated Disposition Plan Disposition Plan: Discharge Discharge Attestation Discharge Attestation: The patient and all family members were given an opportunity to ask questions and understood the discharge instructions. Discharge instructions specifically effects, indications for sooner follow up or return to the emergency department, and the expected course of current diagnosis. Patient condition: Stable Discharge Plan Plan Patient Disposition: HOME (Self Care) Patient condition on transfer: Stable Prescriptions/Referrals Prescriptions/Med Rec: New azithromycin [Zithromax Z-Dwayne] 250 mg tablet See Rx Instructions .ROUTE .COMPLEX Qty: 6 0RF Rx Instructions: For 250 mg dose pack: take 500 mg today (day 1), then 250 mg for 4 days (days 2-5) ibuprofen 800 mg tablet 800 mg PO Q8H PRN (Reason: pain) Qty: 20 0RF ondansetron 4 mg tablet,disintegrating 4 mg PO Q8H PRN (Reason: nausea and vomiting) Qty: 10 0RF fluticasone propionate [Flonase Allergy Relief] 50 mcg/actuation spray,suspension 1 spray intranasal BID Qty: 16 0RF Rx Instructions: administer into each nostril No Action PNV cmb#95-ferrous fumarate-FA [] 28 mg iron- 800 mcg Tablet 1 tab PO QDAY Basaglar KwikPen U-100 Insulin 100 unit/mL (3 mL) Insulin Pen 20 unit SUBCUT HS Rx Instructions: DR. WILLOUGHBY INCREASED TO 20 UNITS TODAY 03/19/21 azithromycin 250 mg tablet See Rx Instructions .ROUTE .COMPLEX Qty: 6 0RF Rx Instructions: For 250 mg dose pack: take 500 mg today (day 1), then 250 mg for 4 days (days 2-5) famotidine 40 mg tablet 40 mg PO QDAY Qty: 20 0RF ibuprofen 600 mg tablet 600 mg PO Q6H Qty: 30 0RF ibuprofen 800 mg tablet 800 mg PO TID PRN (Reason: pain) Qty: 30 0RF Referrals: Francisca Wilkins MD [Primary Care Provider] - In 1 week Problem List Clinical Impression: Headache, Acute sinus infection Patient/Caregiver Discharge Instructions Education Materials: Self-Care for Headaches, ED Sinusitis (Antibiotic Treatment) Additional Instructions: Follow-up with your primary care physician in 2 days for reevaluation worsening symptoms or any emergent concern call 911 or go to the nearest emergency room if your headache recur or persist need to be referred to neurologist for further evaluation and treatment of headache steam inhalation advise increase water intake keep hydrated Print Language: Sami Stand Alone Forms: Cassie Award Info., Patient Portal Info Letter PA/[facility] MEDICAL AND [facility] DIRECTOR Supervising Physician PA/[facility] DIRECTOR Supervising Physician: dr smith
== END 2025-01-06 22:02 | disposition home or self-care (01) ==
PROVIDERS: Nurse Practitioner Family; Emergency Provider Emergency Medicine; PCP Obstetrics & Gynecology
DX: J01.90 Acute sinusitis, unspecified (principal); R51.9 Headache, unspecified
CPT/HCPCS: 70450; 81025; 87400; 87811; 96372; 99283; J1885